=== PATIENT | female | born 1940 | race African-American/Black ===

== ENCOUNTER 2017-09-28 21:22 | Inpatient (IN) | payer OTHER ==
[~2017-09-28] VITALS: Ht 152.4 cm; Wt 45.8 kg
[2017-09-28] MEDS ORDERED: ALBUTEROL (0.083%) 2.5MG/3ML NEB HHN STA (21:53)
[2017-09-28] MEDS ORDERED: IPRATROPIUM BROMIDE (0.02%) 0.5MG/2.5ML NEB HHN STA (21:53)
[2017-09-28] MEDS ORDERED: METHYLPREDNISOLONE SOD SUCC 125 MG/2 ML VIAL IV STA (21:53)
[2017-09-28] MEDS ORDERED: MAGNESIUM 2 G PREMIX 50 ML IV ONE (22:00)
[2017-09-28] MEDS ORDERED: ALBUTEROL (0.5%) 2.5MG/0.5ML NEB HHN ONE ×2 (22:16→22:17)
[2017-09-28] MEDS ORDERED: LEVOFLOXACIN 750MG PREMIX 150 ML IV ONE (22:45)
[2017-09-28 22:50] LABS: BASOPHILS % 0.5 % (0.0-2.0); HEMATOCRIT. 43.9 % (36.0-48.0); HEMOGLOBIN. 14.5 g/dL (12.0-16.0); LYMPHOCYTES % 7.1 % (20.0-50.0); MEAN CORPUSCULAR HEMOGLOBIN 31.3 pg (28.0-32.0); MEAN CORPUSCULAR VOLUME 94.5 fL (81.0-99.0); MEAN PLATELET VOLUME 7.4 fl (7.4-10.4); MONOCYTES % 9.3 % (2.0-8.0); NEUTROPHILS % 83.1 % (40.0-76.0); PLATELET 189 x1000/uL (130-400); RED BLOOD CELL COUNT 4.64 mill/uL (4.2-5.4); RED CELL DISTRIBUTION WIDTH 13.2 % (11.6-14.6)
[2017-09-28 22:57] LABS: INR 1.1; PROTHROMBIN TIME 11.5 sec (9.4-11.6)
[2017-09-28 23:00] LABS: CHLORIDE 98 mEq/L (98-107)
[2017-09-29] MEDS ORDERED: SODIUM CHLORIDE 0.9% 500 ML IV ONE (01:16)
[2017-09-29 03:30] VITALS: BP 102/49
[2017-09-29 04:00] VITALS: BP 102/49
[2017-09-29] MEDS ORDERED: ACETAMINOPHEN 650MG/20.3ML UDC PO PRN (04:45)
[2017-09-29] MEDS: METHYLPREDNISOLONE SOD SUCC 40 MG/ML VIAL IV SCH ×3 (06:35→22:08)
[2017-09-29] MEDS ORDERED: PANTOPRAZOLE 40MG DR TABLET PO SCH (07:10)
[2017-09-29 08:00] VITALS: BP 99/63
[2017-09-29 08:10] LABS: HEMATOCRIT 37.8 % (36.0-48.0); HEMOGLOBIN 12.7 g/dL (12.0-16.0); MEAN CORPUSCULAR HEMOGLOBIN 31.6 pg (28.0-32.0); MEAN CORPUSCULAR VOLUME 94.1 fL (81.0-99.0); PLATELET 182 x1000/uL (130-400); RED BLOOD CELL COUNT 4.01 mill/uL (4.2-5.4); RED CELL DISTRIBUTION WIDTH 13.2 % (11.6-14.6)
[2017-09-29] MEDS ORDERED: ENOXAPARIN 40MG/0.4ML SYR SUBCUT SCH (09:00)
[2017-09-29] MEDS: ENOXAPARIN 30MG/0.3ML SYR SUBCUT SCH (09:09)
[2017-09-29] MEDS: IPRATROPIUM/ALBUTEROL 0.5-3(2.5)MG/3ML NEB HHN SCH ×4 (09:15→21:25)
[2017-09-29 12:00] VITALS: BP 100/50
[2017-09-29] MEDS: AZITHROMYCIN 500 MG TABLET PO SCH (15:21)
[2017-09-29] MEDS: LEVOFLOXACIN 250MG TABLET PO SCH (15:22)
[2017-09-29 16:00] VITALS: BP 126/73
[2017-09-29] MEDS ORDERED: IPRATROPIUM/ALBUTEROL 0.5-3(2.5)MG/3ML NEB HHN PRN (18:15)
[2017-09-29 20:00] VITALS: BP 98/55
[2017-09-29] MEDS: FAMOTIDINE 20MG/2ML VIAL IV SCH (21:06)
[2017-09-29 21:59] LABS: BG BASE EXCESS 6.2 mmol/L (-2.0-2.0); BG CARBOXYHEMOGLOBIN 0.7 % (0.5-1.5); BG DEOXYHEMOGLOBIN 9.4 % (0.0-5.0); BG FRACTION INSPIRED OXYGEN 28; BG HCO3 ACT 33.5 mmol/L (22.0-26.0); BG METHEMOGLOBIN 0.3 % (0.0-1.5); BG OXYGEN SATURATION 90.5 % (92.0-98.5); BG OXYHEMOGLOBIN 89.6 % (94.0-97.0); BG PCO2 60.6 mmHg (35.0-45.0); BG PO2 60.6 mmHg (75.0-100.0); BG SAMPLE SITE RIGHT RADIAL; BG TOTAL HEMOGLOBIN 13.4 g/dL (12.0-18.0); BG VENT MODE NASAL CANNULA
[2017-09-29 23:51] LABS: CLARITY URINE CLEAR (CLEAR); COLOR URINE YELLOW (YELLOW); KETONES URINE NEGATIVE (NEGATIVE); LEUKOCYTE ESTERASE URINE NEGATIVE (NEGATIVE); NITRITE URINE NEGATIVE (NEGATIVE); OCCULT BLOOD URINE NEGATIVE (NEGATIVE); PROTEIN URINE NEGATIVE (NEGATIVE); SPECIFIC GRAVITY URINE 1.016 (1.005-1.030); UROBILINOGEN URINE 0.2 E.U./dL (0.2-1.0)
[2017-09-30] VITALS (7 sets, daily range): BP systolic 100–132; BP diastolic 58–102
[2017-09-30] MEDS: IPRATROPIUM/ALBUTEROL 0.5-3(2.5)MG/3ML NEB HHN SCH ×6 (01:17→21:32)
[2017-09-30] MEDS: METHYLPREDNISOLONE SOD SUCC 40 MG/ML VIAL IV SCH ×3 (05:50→21:12)
[2017-09-30 07:47] LABS: HEMATOCRIT. 37.8 % (36.0-48.0); HEMOGLOBIN. 12.5 g/dL (12.0-16.0); MEAN CORPUSCULAR HEMOGLOBIN 30.9 pg (28.0-32.0); MEAN CORPUSCULAR VOLUME 93.7 fL (81.0-99.0); MEAN PLATELET VOLUME 7.8 fl (7.4-10.4); PLATELET 211 x1000/uL (130-400); RED BLOOD CELL COUNT 4.04 mill/uL (4.2-5.4); RED CELL DISTRIBUTION WIDTH 13.1 % (11.6-14.6)
[2017-09-30] MEDS: AZITHROMYCIN 500 MG TABLET PO SCH (08:54)
[2017-09-30] MEDS: ENOXAPARIN 30MG/0.3ML SYR SUBCUT SCH (08:55)
[2017-09-30] MEDS: LEVOFLOXACIN 250MG TABLET PO SCH (10:00)
[2017-09-30] MEDS ORDERED: LEVOFLOXACIN 250MG TABLET PO SCH (11:00)
[2017-09-30] MEDS ORDERED: IPRATROPIUM/ALBUTEROL 0.5-3(2.5)MG/3ML NEB HHN NR (11:46)
[2017-09-30] MEDS ORDERED: FUROSEMIDE 20MG/2ML VIAL IVP NR (12:00)
[2017-09-30 12:02] LABS: BG BASE EXCESS -1.6 mmol/L (-2.0-2.0); BG CARBOXYHEMOGLOBIN 0.2 % (0.5-1.5); BG DEOXYHEMOGLOBIN 2.1 % (0.0-5.0); BG FRACTION INSPIRED OXYGEN 45; BG HCO3 ACT 25.8 mmol/L (22.0-26.0); BG METHEMOGLOBIN 0.2 % (0.0-1.5); BG OXYGEN SATURATION 97.9 % (92.0-98.5); BG OXYHEMOGLOBIN 97.5 % (94.0-97.0); BG PCO2 54.3 mmHg (35.0-45.0); BG PH 7.294 (7.350-7.450); BG SAMPLE SITE RIGHT BRACHIAL; BG TOTAL HEMOGLOBIN 13.7 g/dL (12.0-18.0)
[2017-09-30] MEDS: BUDESONIDE 0.5MG/2ML NEB HHN SCH ×2 (16:39→21:31)
[2017-09-30 18:57] LABS: PLATELET ESTIMATE NORMAL
[2017-09-30] MEDS: FAMOTIDINE 20MG/2ML VIAL IV SCH (21:12)
[2017-10-01] VITALS (11 sets, daily range): BP systolic 100–157; BP diastolic 48–78
[2017-10-01] MEDS: IPRATROPIUM/ALBUTEROL 0.5-3(2.5)MG/3ML NEB HHN SCH ×5 (00:19→16:24)
[2017-10-01] MEDS: METHYLPREDNISOLONE SOD SUCC 40 MG/ML VIAL IV SCH ×3 (05:21→21:14)
[2017-10-01 06:40] LABS: HEMATOCRIT. 36.5 % (36.0-48.0); HEMOGLOBIN. 11.9 g/dL (12.0-16.0); MEAN CORPUSCULAR HEMOGLOBIN 30.5 pg (28.0-32.0); MEAN CORPUSCULAR VOLUME 93.3 fL (81.0-99.0); MEAN PLATELET VOLUME 7.5 fl (7.4-10.4); PLATELET 247 x1000/uL (130-400); RED BLOOD CELL COUNT 3.91 mill/uL (4.2-5.4); RED CELL DISTRIBUTION WIDTH 13.4 % (11.6-14.6)
[2017-10-01 07:45] LABS: PHOSPHORUS 3.2 mg/dL (2.5-4.9)
[2017-10-01] MEDS: AZITHROMYCIN 500 MG TABLET PO SCH (08:37)
[2017-10-01] MEDS: ENOXAPARIN 30MG/0.3ML SYR SUBCUT SCH (08:37)
[2017-10-01] MEDS: BUDESONIDE 0.5MG/2ML NEB HHN SCH ×2 (08:57→20:01)
[2017-10-01] MEDS: LEVOFLOXACIN 250MG PREMIX 50 ML IV SCH (11:28)
[2017-10-01 13:09] LABS: PLATELET ESTIMATE NORMAL
[2017-10-01] MEDS: FAMOTIDINE 20MG/2ML VIAL IV SCH (21:14)
[2017-10-02] VITALS (12 sets, daily range): BP systolic 103–134; BP diastolic 60–99
[2017-10-02] MEDS: IPRATROPIUM/ALBUTEROL 0.5-3(2.5)MG/3ML NEB HHN SCH ×5 (00:18→16:16)
[2017-10-02 06:48] LABS: HEMATOCRIT 36.9 % (36.0-48.0); HEMOGLOBIN 12.3 g/dL (12.0-16.0); MEAN CORPUSCULAR HEMOGLOBIN 30.9 pg (28.0-32.0); MEAN CORPUSCULAR VOLUME 92.9 fL (81.0-99.0); PLATELET 277 x1000/uL (130-400); RED BLOOD CELL COUNT 3.97 mill/uL (4.2-5.4); RED CELL DISTRIBUTION WIDTH 13.2 % (11.6-14.6)
[2017-10-02] MEDS: BUDESONIDE 0.5MG/2ML NEB HHN SCH ×2 (08:58→19:56)
[2017-10-02] MEDS: METHYLPREDNISOLONE SOD SUCC 40 MG/ML VIAL IV SCH ×2 (09:18→21:27)
[2017-10-02] MEDS: ENOXAPARIN 30MG/0.3ML SYR SUBCUT SCH (09:18)
[2017-10-02] MEDS: AZITHROMYCIN 500 MG TABLET PO SCH (09:20)
[2017-10-02 10:07] LABS: BG BASE EXCESS 6.5 mmol/L (-2.0-2.0); BG CARBOXYHEMOGLOBIN 0.6 % (0.5-1.5); BG DEOXYHEMOGLOBIN 4.3 % (0.0-5.0); BG FRACTION INSPIRED OXYGEN 32; BG HCO3 ACT 35.5 mmol/L (22.0-26.0); BG METHEMOGLOBIN 0.2 % (0.0-1.5); BG OXYGEN SATURATION 95.7 % (92.0-98.5); BG OXYHEMOGLOBIN 94.9 % (94.0-97.0); BG PCO2 71.9 mmHg (35.0-45.0); BG PH 7.311 (7.350-7.450); BG PO2 86.3 mmHg (75.0-100.0); BG SAMPLE SITE RIGHT RADIAL; BG TOTAL HEMOGLOBIN 14.6 g/dL (12.0-18.0); BG VENT MODE NASAL CANNULA
[2017-10-02] MEDS: LEVOFLOXACIN 250MG PREMIX 50 ML IV SCH (13:28)
[2017-10-02] MEDS: FAMOTIDINE 20MG/2ML VIAL IV SCH (21:27)
[2017-10-03] VITALS (13 sets, daily range): BP systolic 123–159; BP diastolic 42–83
[2017-10-03] MEDS: IPRATROPIUM/ALBUTEROL 0.5-3(2.5)MG/3ML NEB HHN SCH ×6 (00:23→21:05)
[2017-10-03] MEDS: METHYLPREDNISOLONE SOD SUCC 40 MG/ML VIAL IV SCH ×3 (05:46→21:40)
[2017-10-03 06:24] LABS: HEMOGLOBIN. 11.8 g/dL (12.0-16.0); MEAN CORPUSCULAR HEMOGLOBIN 30.9 pg (28.0-32.0); MEAN PLATELET VOLUME 7.2 fl (7.4-10.4); PLATELET 270 x1000/uL (130-400); RED BLOOD CELL COUNT 3.83 mill/uL (4.2-5.4); RED CELL DISTRIBUTION WIDTH 12.9 % (11.6-14.6)
[2017-10-03 06:36] LABS: CHLORIDE 99 mEq/L (98-107)
[2017-10-03] MEDS: BUDESONIDE 0.5MG/2ML NEB HHN SCH ×2 (07:49→21:04)
[2017-10-03] MEDS: AZITHROMYCIN 500 MG TABLET PO SCH (08:27)
[2017-10-03] MEDS: ENOXAPARIN 30MG/0.3ML SYR SUBCUT SCH (08:27)
[2017-10-03 14:17] LABS: PLATELET ESTIMATE NORMAL
[2017-10-03] MEDS: LEVOFLOXACIN 250MG PREMIX 50 ML IV SCH (14:37)
[2017-10-03] MEDS ORDERED: LORAZEPAM 2MG/ML CPJ IV PRN (17:23)
[2017-10-03] MEDS: THEOPHYLLINE ANHYDROUS 80 MG/15 ML 120ML PO SCH (21:38)
[2017-10-03] MEDS: FAMOTIDINE 20MG/2ML VIAL IV SCH (21:39)
[2017-10-04] VITALS (14 sets, daily range): BP systolic 93–151; BP diastolic 59–110
[2017-10-04] MEDS: IPRATROPIUM/ALBUTEROL 0.5-3(2.5)MG/3ML NEB HHN SCH ×5 (00:54→20:45)
[2017-10-04] MEDS: METHYLPREDNISOLONE SOD SUCC 40 MG/ML VIAL IV SCH ×3 (05:23→21:25)
[2017-10-04 07:19] LABS: HEMOGLOBIN 12.1 g/dL (12.0-16.0); MEAN CORPUSCULAR HEMOGLOBIN 31.5 pg (28.0-32.0); PLATELET 309 x1000/uL (130-400); RED BLOOD CELL COUNT 3.83 mill/uL (4.2-5.4); RED CELL DISTRIBUTION WIDTH 12.9 % (11.6-14.6)
[2017-10-04 08:03] LABS: CHLORIDE 96 mEq/L (98-107)
[2017-10-04] MEDS: BUDESONIDE 0.5MG/2ML NEB HHN SCH (08:45)
[2017-10-04 08:54] LABS: BG BASE EXCESS 12.3 mmol/L (-2.0-2.0); BG CARBOXYHEMOGLOBIN 0.8 % (0.5-1.5); BG DEOXYHEMOGLOBIN 2.5 % (0.0-5.0); BG FRACTION INSPIRED OXYGEN 34; BG HCO3 ACT 40.8 mmol/L (22.0-26.0); BG METHEMOGLOBIN 0.3 % (0.0-1.5); BG OXYGEN SATURATION 97.5 % (92.0-98.5); BG OXYHEMOGLOBIN 96.4 % (94.0-97.0); BG PCO2 72.8 mmHg (35.0-45.0); BG PH 7.366 (7.350-7.450); BG PO2 98.1 mmHg (75.0-100.0); BG SAMPLE SITE LEFT BRACHIAL; BG TOTAL HEMOGLOBIN 13.2 g/dL (12.0-18.0); BG VENT MODE NASAL CANNULA
[2017-10-04] MEDS: ENOXAPARIN 40MG/0.4ML SYR SUBCUT SCH (09:00)
[2017-10-04] MEDS: AZITHROMYCIN 500 MG TABLET PO SCH (09:00)
[2017-10-04] MEDS: THEOPHYLLINE ANHYDROUS 80 MG/15 ML 120ML PO SCH ×2 (09:00→17:34)
[2017-10-04] MEDS ORDERED: SODIUM POLYSTYRENE SULFONATE 15 G/60 ML BOT PO NR (11:00)
[2017-10-04] MEDS: LEVOFLOXACIN 250MG TABLET PO SCH (11:38)
[2017-10-04] MEDS: LORAZEPAM 2MG/ML CPJ IV PRN (21:25)
[2017-10-04] MEDS: FAMOTIDINE 20MG/2ML VIAL IV SCH (21:25)
[2017-10-05] VITALS (13 sets, daily range): BP systolic 115–163; BP diastolic 36–109
[2017-10-05] MEDS: BUDESONIDE 0.5MG/2ML NEB HHN SCH ×3 (00:12→20:22)
[2017-10-05] MEDS: IPRATROPIUM/ALBUTEROL 0.5-3(2.5)MG/3ML NEB HHN SCH ×6 (00:12→20:22)
[2017-10-05 06:06] LABS: HEMATOCRIT 35.4 % (36.0-48.0); HEMOGLOBIN 11.6 g/dL (12.0-16.0); MEAN CORPUSCULAR HEMOGLOBIN 30.6 pg (28.0-32.0); MEAN CORPUSCULAR VOLUME 93.4 fL (81.0-99.0); PLATELET 322 x1000/uL (130-400); RED BLOOD CELL COUNT 3.79 mill/uL (4.2-5.4)
[2017-10-05] MEDS: METHYLPREDNISOLONE SOD SUCC 40 MG/ML VIAL IV SCH ×3 (06:34→21:33)
[2017-10-05] MEDS: THEOPHYLLINE ANHYDROUS 80 MG/15 ML 120ML PO SCH ×2 (06:34→17:37)
[2017-10-05 07:15] LABS: BG BASE EXCESS 6.7 mmol/L (-2.0-2.0); BG BILEVEL POS AIRWAY PRESSURE 15/5; BG CARBOXYHEMOGLOBIN 0.3 % (0.5-1.5); BG DEOXYHEMOGLOBIN 1.3 % (0.0-5.0); BG HCO3 ACT 33.2 mmol/L (22.0-26.0); BG METHEMOGLOBIN 0.2 % (0.0-1.5); BG OXYGEN SATURATION 98.7 % (92.0-98.5); BG OXYHEMOGLOBIN 98.2 % (94.0-97.0); BG PCO2 56.1 mmHg (35.0-45.0); BG PO2 150.6 mmHg (75.0-100.0); BG SAMPLE SITE RIGHT BRACHIAL; BG TOTAL HEMOGLOBIN 12.9 g/dL (12.0-18.0); BG VENT MODE MASK - BIPAP; BG VENT RATE 16 set
[2017-10-05 07:53] LABS: CHLORIDE 91 mEq/L (98-107)
[2017-10-05] MEDS: ENOXAPARIN 40MG/0.4ML SYR SUBCUT SCH (10:47)
[2017-10-05] MEDS: AZITHROMYCIN 500 MG TABLET PO SCH (10:47)
[2017-10-05] MEDS: LEVOFLOXACIN 250MG TABLET PO SCH (10:47)
[2017-10-05] MEDS: FAMOTIDINE 20MG/2ML VIAL IV SCH (21:33)
[2017-10-05] MEDS: SILDENAFIL CITRATE 20MG TABLET PO SCH (21:33)
[2017-10-06] VITALS (17 sets, daily range): BP systolic 91–157; BP diastolic 53–81
[2017-10-06] MEDS: IPRATROPIUM/ALBUTEROL 0.5-3(2.5)MG/3ML NEB HHN SCH ×5 (00:19→20:57)
[2017-10-06] MEDS: LORAZEPAM 2MG/ML CPJ IV PRN (00:55)
[2017-10-06] MEDS: METHYLPREDNISOLONE SOD SUCC 40 MG/ML VIAL IV SCH ×3 (05:27→21:34)
[2017-10-06] MEDS: SILDENAFIL CITRATE 20MG TABLET PO SCH ×3 (05:27→21:34)
[2017-10-06] MEDS: THEOPHYLLINE ANHYDROUS 80 MG/15 ML 120ML PO SCH ×2 (05:28→21:41)
[2017-10-06 06:34] LABS: CHLORIDE 93 mEq/L (98-107); HEMATOCRIT 36.9 % (36.0-48.0); HEMOGLOBIN 12.1 g/dL (12.0-16.0); MEAN CORPUSCULAR HEMOGLOBIN 30.7 pg (28.0-32.0); MEAN CORPUSCULAR VOLUME 93.7 fL (81.0-99.0); PLATELET 346 x1000/uL (130-400); RED BLOOD CELL COUNT 3.94 mill/uL (4.2-5.4); RED CELL DISTRIBUTION WIDTH 12.9 % (11.6-14.6)
[2017-10-06 06:43] LABS: THEOPHYLLINE 4.1 ug/mL (10-20)
[2017-10-06] MEDS: BUDESONIDE 0.5MG/2ML NEB HHN SCH ×2 (08:43→20:58)
[2017-10-06] MEDS: ENOXAPARIN 40MG/0.4ML SYR SUBCUT SCH (10:08)
[2017-10-06] MEDS: AZITHROMYCIN 500 MG TABLET PO SCH (10:08)
[2017-10-06] MEDS: LEVOFLOXACIN 250MG TABLET PO SCH (10:09)
[2017-10-06] MEDS ORDERED: SODIUM POLYSTYRENE SULFONATE 15 G/60 ML BOT PO NR (14:15)
[2017-10-06] MEDS: FAMOTIDINE 20MG/2ML VIAL IV SCH (21:34)
[2017-10-07] VITALS (13 sets, daily range): BP systolic 114–165; BP diastolic 65–99
[2017-10-07] MEDS: IPRATROPIUM/ALBUTEROL 0.5-3(2.5)MG/3ML NEB HHN SCH ×7 (01:40→20:12)
[2017-10-07 06:12] LABS: HEMATOCRIT 36.7 % (36.0-48.0); HEMOGLOBIN 12.1 g/dL (12.0-16.0); MEAN CORPUSCULAR HEMOGLOBIN 30.6 pg (28.0-32.0); MEAN CORPUSCULAR VOLUME 92.9 fL (81.0-99.0); PLATELET 333 x1000/uL (130-400); RED BLOOD CELL COUNT 3.95 mill/uL (4.2-5.4); RED CELL DISTRIBUTION WIDTH 12.8 % (11.6-14.6)
[2017-10-07 07:11] LABS: CHLORIDE 92 mEq/L (98-107)
[2017-10-07] MEDS: SILDENAFIL CITRATE 20MG TABLET PO SCH ×3 (07:27→21:05)
[2017-10-07] MEDS: METHYLPREDNISOLONE SOD SUCC 40 MG/ML VIAL IV SCH ×2 (08:17→21:04)
[2017-10-07] MEDS: ENOXAPARIN 40MG/0.4ML SYR SUBCUT SCH (08:18)
[2017-10-07] MEDS: THEOPHYLLINE ANHYDROUS 80 MG/15 ML 120ML PO SCH ×2 (08:21→21:07)
[2017-10-07] MEDS: LEVOFLOXACIN 250MG TABLET PO SCH (10:48)
[2017-10-07] MEDS: LORAZEPAM 2MG/ML CPJ IV PRN (18:12)
[2017-10-07] MEDS: FAMOTIDINE 20MG TABLET PO SCH (21:04)
[2017-10-07] MEDS: DILTIAZEM HCL 90MG TABLET PO SCH (21:05)
[2017-10-07] MEDS: MORPHINE SULFATE 4 MG/ML CPJ (NOT FOR IM USE) IV PRN (21:06)
[2017-10-08] VITALS (12 sets, daily range): BP systolic 93–156; BP diastolic 45–98
[2017-10-08] MEDS: IPRATROPIUM/ALBUTEROL 0.5-3(2.5)MG/3ML NEB HHN SCH ×6 (00:08→20:51)
[2017-10-08] MEDS: SILDENAFIL CITRATE 20MG TABLET PO SCH ×3 (05:27→21:08)
[2017-10-08] MEDS: THEOPHYLLINE ANHYDROUS 80 MG/15 ML 120ML PO SCH ×2 (08:26→20:30)
[2017-10-08] MEDS: METHYLPREDNISOLONE SOD SUCC 40 MG/ML VIAL IV SCH ×2 (08:26→20:28)
[2017-10-08] MEDS: DILTIAZEM HCL 90MG TABLET PO SCH ×2 (08:27→20:29)
[2017-10-08] MEDS: ENOXAPARIN 40MG/0.4ML SYR SUBCUT SCH (08:27)
[2017-10-08] MEDS: LEVOFLOXACIN 250MG TABLET PO SCH (11:25)
[2017-10-08 15:52] LABS: HEMATOCRIT. 38.8 % (36.0-48.0); HEMOGLOBIN. 12.9 g/dL (12.0-16.0); MEAN CORPUSCULAR HEMOGLOBIN 31.3 pg (28.0-32.0); MEAN CORPUSCULAR VOLUME 93.8 fL (81.0-99.0); PLATELET 340 x1000/uL (130-400); RED BLOOD CELL COUNT 4.14 mill/uL (4.2-5.4); RED CELL DISTRIBUTION WIDTH 13.1 % (11.6-14.6)
[2017-10-08 17:44] LABS: PLATELET ESTIMATE NORMAL
[2017-10-08] MEDS: FAMOTIDINE 20MG TABLET PO SCH (20:28)
[2017-10-09] VITALS (13 sets, daily range): BP systolic 99–152; BP diastolic 52–86
[2017-10-09] MEDS: IPRATROPIUM/ALBUTEROL 0.5-3(2.5)MG/3ML NEB HHN SCH ×6 (00:34→20:40)
[2017-10-09] MEDS: MORPHINE SULFATE 4 MG/ML CPJ (NOT FOR IM USE) IV PRN (00:41)
[2017-10-09] MEDS: SILDENAFIL CITRATE 20MG TABLET PO SCH ×3 (05:39→21:04)
[2017-10-09] MEDS: METHYLPREDNISOLONE SOD SUCC 40 MG/ML VIAL IV SCH (08:52)
[2017-10-09] MEDS: DILTIAZEM HCL 90MG TABLET PO SCH ×2 (08:53→21:04)
[2017-10-09] MEDS: ENOXAPARIN 40MG/0.4ML SYR SUBCUT SCH (08:53)
[2017-10-09] MEDS: THEOPHYLLINE ANHYDROUS 80 MG/15 ML 120ML PO SCH ×2 (08:54→21:07)
[2017-10-09] MEDS: FAMOTIDINE 20MG TABLET PO SCH (21:04)
[2017-10-10] VITALS (12 sets, daily range): BP systolic 92–157; BP diastolic 57–69
[2017-10-10] MEDS: IPRATROPIUM/ALBUTEROL 0.5-3(2.5)MG/3ML NEB HHN SCH ×6 (00:36→20:13)
[2017-10-10] MEDS: SILDENAFIL CITRATE 20MG TABLET PO SCH ×3 (06:17→21:29)
[2017-10-10 06:37] LABS: BG BASE EXCESS 8.8 mmol/L (-2.0-2.0); BG BILEVEL POS AIRWAY PRESSURE 15/5; BG CARBOXYHEMOGLOBIN 0.4 % (0.5-1.5); BG DEOXYHEMOGLOBIN 3.3 % (0.0-5.0); BG FRACTION INSPIRED OXYGEN 35; BG HCO3 ACT 34.5 mmol/L (22.0-26.0); BG METHEMOGLOBIN 0.3 % (0.0-1.5); BG OXYGEN SATURATION 96.7 % (92.0-98.5); BG PCO2 52.6 mmHg (35.0-45.0); BG PH 7.435 (7.350-7.450); BG PO2 93.2 mmHg (75.0-100.0); BG SAMPLE SITE RIGHT BRACHIAL; BG TOTAL HEMOGLOBIN 12.2 g/dL (12.0-18.0); BG VENT MODE MASK - BIPAP
[2017-10-10 07:07] LABS: HEMATOCRIT 33.9 % (36.0-48.0); HEMOGLOBIN 11.2 g/dL (12.0-16.0); MEAN CORPUSCULAR HEMOGLOBIN 30.9 pg (28.0-32.0); MEAN CORPUSCULAR VOLUME 93.3 fL (81.0-99.0); PLATELET 298 x1000/uL (130-400); RED BLOOD CELL COUNT 3.63 mill/uL (4.2-5.4); RED CELL DISTRIBUTION WIDTH 13.3 % (11.6-14.6)
[2017-10-10 07:33] LABS: CHLORIDE 100 mEq/L (98-107)
[2017-10-10] MEDS: DILTIAZEM HCL 90MG TABLET PO SCH ×2 (08:36→21:28)
[2017-10-10] MEDS: PREDNISONE 20MG TABLET PO SCH (08:36)
[2017-10-10] MEDS: THEOPHYLLINE ANHYDROUS 80 MG/15 ML 120ML PO SCH ×2 (08:37→22:50)
[2017-10-10] MEDS: ENOXAPARIN 30MG/0.3ML SYR SUBCUT SCH (08:37)
[2017-10-10] MEDS: FAMOTIDINE 20MG TABLET PO SCH (21:28)
[2017-10-11] VITALS (9 sets, daily range): BP systolic 74–140; BP diastolic 54–68
[2017-10-11] MEDS: IPRATROPIUM/ALBUTEROL 0.5-3(2.5)MG/3ML NEB HHN SCH ×6 (00:27→15:30)
[2017-10-11 06:10] LABS: HEMATOCRIT 35.2 % (36.0-48.0); HEMOGLOBIN 11.4 g/dL (12.0-16.0); MEAN CORPUSCULAR HEMOGLOBIN 30.6 pg (28.0-32.0); MEAN CORPUSCULAR VOLUME 94.3 fL (81.0-99.0); PLATELET 292 x1000/uL (130-400); RED BLOOD CELL COUNT 3.73 mill/uL (4.2-5.4); RED CELL DISTRIBUTION WIDTH 13.4 % (11.6-14.6)
[2017-10-11] MEDS: SILDENAFIL CITRATE 20MG TABLET PO SCH ×2 (06:16→14:31)
[2017-10-11 06:43] LABS: CHLORIDE 102 mEq/L (98-107)
[2017-10-11] MEDS: PREDNISONE 20MG TABLET PO SCH (08:56)
[2017-10-11] MEDS: THEOPHYLLINE ANHYDROUS 80 MG/15 ML 120ML PO SCH (08:57)
[2017-10-11] MEDS: ENOXAPARIN 30MG/0.3ML SYR SUBCUT SCH (08:57)
[2017-10-11] MEDS: DILTIAZEM HCL 90MG TABLET PO SCH (09:49)
[2017-10-11] MEDS ORDERED: HYDROCODONE/ACETAMINOPHEN 5/325MG TABLET PO PRN (11:30)
== END 2017-10-11 15:50 | DRG 193 ==
LOC: ER 21:42 → 8WST 23:37 → EDBEDREQ 23:41 → ENRESERV 09-29 02:19 → 5EST 09-30 13:26
PROVIDERS: ADMIT Internal Medicine; ATTEND Internal Medicine
PROC: 5A09457 Assistance with Respiratory Ventilation, 24-96 Consecutive Hours, Continuous Positive Airway Pressure (ICD-10-PCS; principal; 2017-09-30)
PROC: 5A09457 Assistance with Respiratory Ventilation, 24-96 Consecutive Hours, Continuous Positive Airway Pressure (ICD-10-PCS; 2017-10-04)
PROC: 5A09357 Assistance with Respiratory Ventilation, Less than 24 Consecutive Hours, Continuous Positive Airway Pressure (ICD-10-PCS; 2017-10-07)
PROC: 5A09357 Assistance with Respiratory Ventilation, Less than 24 Consecutive Hours, Continuous Positive Airway Pressure (ICD-10-PCS; 2017-10-08)
PROC: 5A09457 Assistance with Respiratory Ventilation, 24-96 Consecutive Hours, Continuous Positive Airway Pressure (ICD-10-PCS; 2017-10-09)
DX: J18.9 Pneumonia, unspecified organism (principal); J96.21 Acute and chronic respiratory failure with hypoxia; E46 Unspecified protein-calorie malnutrition; J96.22 Acute and chronic respiratory failure with hypercapnia; J44.0 Chronic obstructive pulmonary disease with (acute) lower respiratory infection; J44.1 Chronic obstructive pulmonary disease with (acute) exacerbation; Z68.1 Body mass index [BMI] 19.9 or less, adult; Z99.81 Dependence on supplemental oxygen; E87.5 Hyperkalemia; F03.90 Unspecified dementia, unspecified severity, without behavioral disturbance, psychotic disturbance, mood disturbance, and anxiety; F41.9 Anxiety disorder, unspecified; I10 Essential (primary) hypertension; R73.9 Hyperglycemia, unspecified; I27.20 Pulmonary hypertension, unspecified; Z87.891 Personal history of nicotine dependence
CPT/HCPCS: 36415; 36600; 71045; 71250; 80048; 80053; 80198; 81003; 82375; 82805; 83036; 83605; 83690; 83735; 83880; 84100; 84484; 85025; 85027; 85610; 87040; 87086; 87804; 93005; 93306; 94640; 94660; 96361; 96365; 96366; 96367; 96375; 97116; 97162; 99285; A6261; C1893; J1650; J1940; J1956; J2060; J2270; J2920; J2930; J3475; J3490; J7030; J7050; J7512; J7611; J7620; J7626

== ENCOUNTER 2018-04-03 12:46 | Inpatient (IN) | payer OTHER ==
[~2018-04-03] VITALS: Ht 152.4 cm; Wt 42.4 kg
[~2018-04-03 12:46] MED LIST: FOLI-43 MT; OMEP20CA10 MT; SILD20TA PO
[2018-04-03] MEDS ORDERED: SODIUM CHLORIDE 0.9% 500 ML IV ONE (13:15)
[2018-04-03 14:52] LABS: BASOPHILS % 0.7 % (0.0-2.0); EOSINOPHILS % 0.3 % (0.0-5.0); HEMATOCRIT. 32.4 % (36.0-48.0); HEMOGLOBIN. 10.9 g/dL (12.0-16.0); LYMPHOCYTES % 14.6 % (20.0-50.0); MEAN CORPUSCULAR HEMOGLOBIN 31.8 pg (28.0-32.0); MEAN CORPUSCULAR VOLUME 94.6 fL (81.0-99.0); MONOCYTES % 7.9 % (2.0-8.0); NEUTROPHILS % 76.5 % (40.0-76.0); PLATELET 247 x1000/uL (130-400); RED BLOOD CELL COUNT 3.43 mill/uL (4.2-5.4); RED CELL DISTRIBUTION WIDTH 13.2 % (11.6-14.6)
[2018-04-03 14:53] LABS: CHLORIDE 96 mEq/L (98-107)
[2018-04-03 14:57] LABS: AMMONIA 11 uMol/L (<32)
[2018-04-03 15:19] LABS: HEPATITIS B SURFACE ANTIGEN NEGATIVE
[2018-04-03 15:41] LABS: CLARITY URINE TURBID (CLEAR); COLOR URINE YELLOW (YELLOW); KETONES URINE NEGATIVE (NEGATIVE); LEUKOCYTE ESTERASE URINE NEGATIVE (NEGATIVE); NITRITE URINE NEGATIVE (NEGATIVE); OCCULT BLOOD URINE NEGATIVE (NEGATIVE); PROTEIN URINE NEGATIVE (NEGATIVE); SPECIFIC GRAVITY URINE 1.019 (1.005-1.030)
[2018-04-03 15:47] LABS: HEPATITIS B CORE AB IGM NEGATIVE
[2018-04-03 15:48] LABS: HEPATITIS A AB IGM NEGATIVE (NEGATIVE)
[2018-04-03 16:15] LABS: *AMPHETAMINES SCREEN URINE NEGATIVE (NEGATIVE); *BARBITURATES SCREEN URINE NEGATIVE (NEGATIVE); *BENZODIAZEPINES SCREEN URINE NEGATIVE (NEGATIVE); *COCAINE SCREEN URINE NEGATIVE (NEGATIVE); METHADONE URINE SCREEN NEGATIVE (NEGATIVE); OPIATES URINE SCREEN NEGATIVE (NEGATIVE)
[2018-04-03 16:16] LABS: CANNABINOID URINE SCREEN NEGATIVE (NEGATIVE); PHENCYCLIDINE URINE SCREEN NEGATIVE (NEGATIVE)
[2018-04-03] MEDS ORDERED: IPRATROPIUM/ALBUTEROL 0.5-3(2.5)MG/3ML NEB HHN ONE (20:15)
[2018-04-03 21:39] LABS: BG BASE EXCESS 13.2 mmol/L (-2.0-2.0); BG CARBOXYHEMOGLOBIN 0.1 % (0.5-1.5); BG DEOXYHEMOGLOBIN 2.4 % (0.0-5.0); BG FRACTION INSPIRED OXYGEN 32; BG HCO3 ACT 40.3 mmol/L (22.0-26.0); BG OXYGEN SATURATION 97.6 % (92.0-98.5); BG OXYHEMOGLOBIN 97.5 % (94.0-97.0); BG PCO2 68.4 mmHg (35.0-45.0); BG PH 7.388 (7.350-7.450); BG PO2 113.2 mmHg (75.0-100.0); BG SAMPLE SITE LEFT RADIAL; BG TOTAL HEMOGLOBIN 9.4 g/dL (12.0-18.0); BG VENT MODE NASAL CANNULA
[2018-04-04] VITALS: BP 143/71
[2018-04-04 04:00] VITALS: BP 164/73
[2018-04-04] MEDS ORDERED: LEVOFLOXACIN 500MG PREMIX 100 ML IV SCH ×2 (05:00)
[2018-04-04] MEDS: METHYLPREDNISOLONE SOD SUCC 40 MG/ML VIAL IV SCH ×3 (05:21→21:25)
[2018-04-04] MEDS: PANTOPRAZOLE 40MG DR TABLET PO SCH (06:51)
[2018-04-04 08:00] VITALS: BP 192/91
[2018-04-04] MEDS ORDERED: CLONIDINE 0.1MG TABLET PO PRN (09:45)
[2018-04-04 12:00] VITALS: BP 163/81
[2018-04-04 13:55] LABS: BG BASE EXCESS 11.9 mmol/L (-2.0-2.0); BG CARBOXYHEMOGLOBIN 0.1 % (0.5-1.5); BG DEOXYHEMOGLOBIN 2.5 % (0.0-5.0); BG FRACTION INSPIRED OXYGEN 28; BG HCO3 ACT 38.9 mmol/L (22.0-26.0); BG METHEMOGLOBIN 0.3 % (0.0-1.5); BG OXYGEN SATURATION 97.5 % (92.0-98.5); BG OXYHEMOGLOBIN 97.1 % (94.0-97.0); BG PCO2 62.9 mmHg (35.0-45.0); BG PH 7.409 (7.350-7.450); BG PO2 107.2 mmHg (75.0-100.0); BG SAMPLE SITE RIGHT RADIAL; BG TOTAL HEMOGLOBIN 11.9 g/dL (12.0-18.0); BG VENT MODE NASAL CANNULA
[2018-04-04 15:46] LABS: BASOPHILS % 0.4 % (0.0-2.0); HEMATOCRIT. 33.6 % (36.0-48.0); HEMOGLOBIN. 11.4 g/dL (12.0-16.0); LYMPHOCYTES % 12.6 % (20.0-50.0); MEAN CORPUSCULAR HEMOGLOBIN 31.7 pg (28.0-32.0); MEAN CORPUSCULAR VOLUME 93.6 fL (81.0-99.0); MEAN PLATELET VOLUME 6.9 fl (7.4-10.4); MONOCYTES % 5.3 % (2.0-8.0); NEUTROPHILS % 81.7 % (40.0-76.0); PLATELET 259 x1000/uL (130-400); RED BLOOD CELL COUNT 3.59 mill/uL (4.2-5.4); RED CELL DISTRIBUTION WIDTH 13.1 % (11.6-14.6)
[2018-04-04 15:54] LABS: CHLORIDE 93 mEq/L (98-107)
[2018-04-04 16:00] VITALS: BP 148/62
[2018-04-04 20:00] VITALS: BP 130/65
[2018-04-05] VITALS: BP 142/66
[2018-04-05 04:00] VITALS: BP 141/68
[2018-04-05] MEDS: LEVOFLOXACIN 250MG PREMIX 50 ML IV SCH (04:15)
[2018-04-05] MEDS: PANTOPRAZOLE 40MG DR TABLET PO SCH (06:02)
[2018-04-05] MEDS: METHYLPREDNISOLONE SOD SUCC 40 MG/ML VIAL IV SCH ×3 (06:03→22:34)
[2018-04-05 08:00] VITALS: BP 147/74
[2018-04-05 12:00] VITALS: BP 124/54
[2018-04-05] MEDS ORDERED: OMEPRAZOLE 20MG CAPSULE EXTENDED RELEASE PO SCH (12:45)
[2018-04-05] MEDS: SILDENAFIL CITRATE 20MG TABLET PO SCH ×2 (14:39→22:00)
[2018-04-05] MEDS: ENOXAPARIN 30MG/0.3ML SYR SUBCUT SCH (14:40)
[2018-04-05 16:00] VITALS: BP 115/63
[2018-04-05 20:00] VITALS: BP 107/60
[2018-04-06] VITALS: BP 118/48
[2018-04-06 04:00] VITALS: BP 138/86
[2018-04-06] MEDS: SILDENAFIL CITRATE 20MG TABLET PO SCH ×3 (05:08→21:37)
[2018-04-06] MEDS: METHYLPREDNISOLONE SOD SUCC 40 MG/ML VIAL IV SCH ×3 (05:08→21:38)
[2018-04-06] MEDS: LEVOFLOXACIN 250MG PREMIX 50 ML IV SCH (05:08)
[2018-04-06 08:39] VITALS: BP 135/51
[2018-04-06] MEDS: FAMOTIDINE 20MG TABLET PO SCH (09:26)
[2018-04-06 12:56] VITALS: BP 136/71
[2018-04-06] MEDS: ENOXAPARIN 30MG/0.3ML SYR SUBCUT SCH (13:57)
[2018-04-06 17:43] VITALS: BP 148/76
[2018-04-06 20:00] VITALS: BP 135/64
[2018-04-06] MEDS ORDERED: IOHEXOL-300 100 ML BOTTLE ONE (22:22)
[2018-04-07] VITALS: BP 150/50
[2018-04-07] MEDS: LEVOFLOXACIN 250MG PREMIX 50 ML IV SCH (04:49)
[2018-04-07] MEDS: METHYLPREDNISOLONE SOD SUCC 40 MG/ML VIAL IV SCH ×3 (05:13→21:07)
[2018-04-07] MEDS: SILDENAFIL CITRATE 20MG TABLET PO SCH ×3 (05:13→21:13)
[2018-04-07 08:00] VITALS: BP 132/68
[2018-04-07] MEDS: FAMOTIDINE 20MG TABLET PO SCH (09:17)
[2018-04-07 12:00] VITALS: BP 118/80
[2018-04-07] MEDS: ENOXAPARIN 30MG/0.3ML SYR SUBCUT SCH (14:50)
[2018-04-07 16:00] VITALS: BP 146/59
[2018-04-07 20:43] VITALS: BP 118/53
[2018-04-08] VITALS (7 sets, daily range): BP systolic 113–148; BP diastolic 53–71
[2018-04-08] MEDS: METHYLPREDNISOLONE SOD SUCC 40 MG/ML VIAL IV SCH ×3 (06:32→21:54)
[2018-04-08] MEDS: SILDENAFIL CITRATE 20MG TABLET PO SCH ×3 (06:33→21:54)
[2018-04-08] MEDS: FAMOTIDINE 20MG TABLET PO SCH (09:10)
[2018-04-08] MEDS: LEVOFLOXACIN 250MG TABLET PO SCH (10:47)
[2018-04-08] MEDS: ENOXAPARIN 30MG/0.3ML SYR SUBCUT SCH (14:22)
[2018-04-09 00:14] VITALS: BP 145/74
[2018-04-09 04:00] VITALS: BP 142/63
[2018-04-09] MEDS: SILDENAFIL CITRATE 20MG TABLET PO SCH (06:38)
[2018-04-09] MEDS: METHYLPREDNISOLONE SOD SUCC 40 MG/ML VIAL IV SCH (06:38)
[2018-04-09 08:00] VITALS: BP 147/70
[2018-04-09] MEDS: FAMOTIDINE 20MG TABLET PO SCH (09:12)
[2018-04-09] MEDS: LEVOFLOXACIN 250MG TABLET PO SCH (11:00)
[2018-04-09 12:00] VITALS: BP 128/60
[2018-04-09] MEDS ORDERED: IPRATROPIUM/ALBUTEROL 0.5-3(2.5)MG/3ML NEB HHN SCH (12:15)
== END 2018-04-09 13:09 | disposition home health service (06) | DRG 189 ==
LOC: ER 12:46 → 6WST 20:02 → EDBEDREQ 20:08 → EDBEDREQTM 20:08 → ENRESERV 20:53
PROVIDERS: ADMIT Internal Medicine; ATTEND Internal Medicine
DX: J96.22 Acute and chronic respiratory failure with hypercapnia (principal); G93.40 Encephalopathy, unspecified; J44.1 Chronic obstructive pulmonary disease with (acute) exacerbation; E44.0 Moderate protein-calorie malnutrition; E87.2 Acidosis; Z68.1 Body mass index [BMI] 19.9 or less, adult; I16.0 Hypertensive urgency; E78.5 Hyperlipidemia, unspecified; F03.90 Unspecified dementia, unspecified severity, without behavioral disturbance, psychotic disturbance, mood disturbance, and anxiety; F41.9 Anxiety disorder, unspecified; I10 Essential (primary) hypertension; I27.20 Pulmonary hypertension, unspecified; E87.8 Other disorders of electrolyte and fluid balance, not elsewhere classified; D72.819 Decreased white blood cell count, unspecified; R91.1 Solitary pulmonary nodule; Z87.440 Personal history of urinary (tract) infections; Z99.81 Dependence on supplemental oxygen; Z79.899 Other long term (current) drug therapy; Z87.891 Personal history of nicotine dependence
CPT/HCPCS: 36415; 36600; 70450; 71045; 74178; 80048; 80053; 80305; 81003; 82140; 82375; 82805; 83036; 83735; 83880; 84484; 85025; 86705; 86709; 86803; 87040; 87086; 87340; 93005; 94640; 96360; 96361; 97116; 97162; 97166; 97530; 99285; J1650; J1956; J2920; J7040; J7050; J7620; Q9967